=== PATIENT | male | born 1955 | race African-American/Black ===

== ENCOUNTER 2021-12-13 05:45 | Inpatient (IN) ==
[2021-11-30 12:11] LABS: Basophils % 0.2 % (0.0-0.8); Eosinophils # 0.2 10*3/uL (0.0-0.87); Eosinophils % 2.8 % (0.00-10.9); Hemoglobin 14.2 GM/DL (14.0-18.0); Immature Granulocytes % 0.2 %; Immature Granulocytes Absolute 0.01 #; Lymphocytes # 1.6 10*3/uL (1.4-4.0); Mean Corpuscular HGB Conc 32.3 GM/DL (32-36); Mean Corpuscular Volume 94.4 FL (87-102); Mean Platelet Volume 12.7 FL (9.6-12.0); Monocytes % 9.9 % (1.7-12.7); Neutrophils % 58.9 % (38.7-73.9); Platelet Count 224 T/CUMM (130-400); Red Blood Count 4.66 MC/CUMM (3.8-5.5); Red Cell Distribution Width 14.7 % (9.3-17.3); White Blood Count 5.6 T/CUMM (4-12)
[2021-11-30 12:49] LABS: Albumin 3.6 G/DL (3.4-5.0); Bilirubin,Total 0.7 MG/DL (0.20-1.00); Calcium 8.9 MG/DL (8.5-10.1); Osmolality,Calculated 281.8 MOS/KG (273-304); Potassium 4.1 MMOL/L (3.5-5.1)
[2021-12-13] MEDS ORDERED: cefTRIAXone 1,000 MG in SODIUM CHLORIDE 0.9% 100 ML IV ONE (06:00)
[2021-12-13] MEDS ORDERED: MIDAZOLAM 2 MG/2 ML VIAL ONE (06:29)
[2021-12-13] MEDS ORDERED: ROCURONIUM 50 MG/5 ML VIAL IV ONE (06:29)
[2021-12-13] MEDS ORDERED: propofoL 200 MG/20 ML VIAL IV ONE (06:29)
[2021-12-13] MEDS ORDERED: DEXAMETHASONE 4 MG/1 ML VIAL ONE ×2 (06:29→06:42)
[2021-12-13] MEDS ORDERED: LIDOCAINE 2% 5 ML VIAL ONE (06:29)
[2021-12-13] MEDS ORDERED: LACTATED RINGERS 1,000 ML IV ONE (06:29)
[2021-12-13] MEDS ORDERED: SEVOFLURANE 1 UNIT/15 MINUTE INH ONE ×10 (06:29→11:24)
[2021-12-13] MEDS ORDERED: ONDANSETRON 4 MG/2 ML VIAL ONE (06:29)
[2021-12-13] MEDS ORDERED: fentaNYL 250 MCG/5 ML VIAL ONE ×2 (06:29→07:58)
[2021-12-13] MEDS: LACTATED RINGERS 1,000 ML IV SCH (06:42)
[2021-12-13] MEDS ORDERED: LIDOCAINE 1% 5 ML VIAL ONE (06:42)
[2021-12-13] MEDS ORDERED: BUPIVACAINE MPF 0.25% 30 ML VIAL ONE (06:42)
[2021-12-13] MEDS ORDERED: ROPIVACAINE 0.5% 30 ML VIAL ONE (06:47)
[2021-12-13] MEDS ORDERED: ALVIMOPAN 12 MG CAPSULE ONE (07:10)
[2021-12-13] MEDS ORDERED: GABAPENTIN 400 MG CAPSULE PO ONE (07:30)
[2021-12-13] MEDS ORDERED: PANTOPRAZOLE 40 MG TABLET PO ONE (07:30)
[2021-12-13] MEDS ORDERED: ACETAMINOPHEN 500 MG TABLET PO ONE (07:30)
[2021-12-13] MEDS ORDERED: PHENYLEPHRINE 1 MG/10 ML SYRINGE IV ONE (08:29)
[2021-12-13 08:47] LABS: Bacteria,Urine Occasional /HPF (Few); RBC,Urine <1 /HPF (0-4)
[2021-12-13 08:49] LABS: Glucose,Urine (UA) Negative (Negative); Ketones,Urine Trace mg/dL (Negative); Nitrite,Urine Negative (Negative); Protein,Urine Negative (Negative); Urine Appearance Clear (Clear); Urine Color Yellow (Yellow)
[2021-12-13 08:50] LABS: Bilirubin,Urine Negative (Negative); Blood, Urine Negative (Negative); Urine Urobilinogen 0.2 eU/dL (<2.0)
[2021-12-13] MEDS ORDERED: HYDROmorphone 1 MG/1 ML SYRINGE IV PRN ×2 (11:52→11:58)
[2021-12-13] MEDS ORDERED: PROMETHAZINE 25 MG/1 ML VIAL IM PRN (11:52)
[2021-12-13] MEDS ORDERED: diphenhydrAMINE 50 MG/1 ML VIAL IV PRN ×2 (11:52→11:58)
[2021-12-13] MEDS ORDERED: SIMETHICONE CHEW 125 MG TABLET PO PRN (11:52)
[2021-12-13] MEDS ORDERED: ONDANSETRON 4 MG/2 ML VIAL IV PRN ×2 (11:52→11:58)
[2021-12-13] MEDS ORDERED: oxyCODONE/ACETAMINOPHEN 5-325 MG TABLET PO PRN (11:52)
[2021-12-13] MEDS ORDERED: PROMETHAZINE INJ 25 MG in SODIUM CHLORIDE 0.9% 50 ML IV PRN (11:58)
[2021-12-13] MEDS ORDERED: MEPERIDINE 25 MG/1 ML VIAL IV PRN (11:58)
[2021-12-13] MEDS ORDERED: LABETALOL 20 MG/4 ML SYRINGE IV ONE (11:59)
[2021-12-13 12:22] LABS: Basophils % 0.1 % (0.0-0.8); Hematocrit 30.2 VOL% (42.0-52.0); Hemoglobin 9.8 GM/DL (14.0-18.0); Immature Granulocytes % 0.4 %; Immature Granulocytes Absolute 0.04 #; Lymphocytes # 0.9 10*3/uL (1.4-4.0); Lymphocytes % 9.3 % (21.2-54.2); Mean Corpuscular HGB Conc 32.5 GM/DL (32-36); Mean Corpuscular Volume 95.3 FL (87-102); Mean Platelet Volume 10.6 FL (9.6-12.0); Neutrophils % 89.2 % (38.7-73.9); Platelet Count 209 T/CUMM (130-400); Red Blood Count 3.17 MC/CUMM (3.8-5.5); Red Cell Distribution Width 13.9 % (9.3-17.3); White Blood Count 9.4 T/CUMM (4-12)
[2021-12-13] MEDS: ACETAMINOPHEN 325 MG TABLET PO SCH ×2 (12:34→17:52)
[2021-12-13] MEDS: cefTRIAXone 1,000 MG in SODIUM CHLORIDE 0.9% 100 ML IV SCH (12:35)
[2021-12-13] MEDS: SODIUM CHLORIDE 0.9% 1,000 ML IV SCH ×2 (12:38→20:58)
[2021-12-13 12:41] LABS: Calcium 7.6 MG/DL (8.5-10.1); Osmolality,Calculated 273.5 MOS/KG (273-304)
[2021-12-13 13:01] LABS: Band Neutrophils 7 % (0-10); Lymphocytes 6 % (20-55); Platelet Estimate Normal; Segmented Neutrophils 83 % (50-85); Total Cells Counted 100
[2021-12-13 13:02] LABS: Anisocytosis 1+; Macrocytosis 1+
[2021-12-13] MEDS: OXYBUTYNIN 5 MG TABLET PO SCH ×2 (16:19→21:02)
[2021-12-13] MEDS: LATANOPROST 0.005% OPH SOLN 2.5 ML BOTTLE BOTH EYES SCH (21:00)
[2021-12-13] MEDS: ALVIMOPAN 12 MG CAPSULE PO SCH (21:02)
[2021-12-13] MEDS: DOCUSATE SODIUM 100 MG CAPSULE PO SCH (21:02)
[2021-12-13] MEDS: PANTOPRAZOLE 40 MG TABLET PO SCH (21:02)
[2021-12-14] MEDS: ACETAMINOPHEN 325 MG TABLET PO SCH ×4 (00:23→17:56)
[2021-12-14] MEDS: SODIUM CHLORIDE 0.9% 1,000 ML IV SCH (04:05)
[2021-12-14 05:04] LABS: Basophils % 0.1 % (0.0-0.8); Hematocrit 38.2 VOL% (42.0-52.0); Hemoglobin 12.6 GM/DL (14.0-18.0); Immature Granulocytes % 0.3 %; Immature Granulocytes Absolute 0.03 #; Lymphocytes # 1.4 10*3/uL (1.4-4.0); Lymphocytes % 11.8 % (21.2-54.2); Mean Corpuscular Volume 91.4 FL (87-102); Monocytes % 9.1 % (1.7-12.7); Neutrophils % 78.7 % (38.7-73.9); Platelet Count 240 T/CUMM (130-400); Red Blood Count 4.18 MC/CUMM (3.8-5.5); Red Cell Distribution Width 14.1 % (9.3-17.3); White Blood Count 11.7 T/CUMM (4-12)
[2021-12-14 05:21] LABS: Calcium 8.2 MG/DL (8.5-10.1); Osmolality,Calculated 279.3 MOS/KG (273-304); Potassium 3.9 MMOL/L (3.5-5.1)
[2021-12-14] MEDS: LACTATED RINGERS 1,000 ML IV SCH (08:00)
[2021-12-14] MEDS: ALVIMOPAN 12 MG CAPSULE PO SCH ×2 (09:50→20:43)
[2021-12-14] MEDS: DOCUSATE SODIUM 100 MG CAPSULE PO SCH ×2 (09:50→20:43)
[2021-12-14] MEDS: OXYBUTYNIN 5 MG TABLET PO SCH ×3 (09:50→20:43)
[2021-12-14] MEDS: amLODIPine 10 MG TABLET PO SCH (09:50)
[2021-12-14] MEDS: PANTOPRAZOLE 40 MG TABLET PO SCH ×2 (09:50→20:43)
[2021-12-14] MEDS: cefTRIAXone 1,000 MG in SODIUM CHLORIDE 0.9% 100 ML IV SCH (12:39)
[2021-12-14] MEDS: LATANOPROST 0.005% OPH SOLN 2.5 ML BOTTLE BOTH EYES SCH (20:43)
[2021-12-15] MEDS: ACETAMINOPHEN 325 MG TABLET PO SCH ×2 (05:40)
[2021-12-15 08:01] VITALS: BP 128/81
[2021-12-15] MEDS: OXYBUTYNIN 5 MG TABLET PO SCH (08:53)
[2021-12-15] MEDS: amLODIPine 10 MG TABLET PO SCH (08:54)
[2021-12-15] MEDS: ALVIMOPAN 12 MG CAPSULE PO SCH (08:54)
[2021-12-15] MEDS: DOCUSATE SODIUM 100 MG CAPSULE PO SCH (08:54)
[2021-12-15] MEDS: PANTOPRAZOLE 40 MG TABLET PO SCH (08:54)
== END 2021-12-15 10:55 | disposition home or self-care (01) | DRG 708 ==
LOC: N.OR 05:45 → N.SDSINP 05:49 → N.3E 13:03
PROVIDERS: ADMIT Surgery; ATTEND Surgery